=== PATIENT | male | born 1980 | race Hispanic/Latino ===

== ENCOUNTER 2021-10-03 14:33 | Outpatient (CLI) | payer OTHER | END 2021-10-03 14:34 | disposition home or self-care (01) | LOC: CSHMRI 14:33 | PROVIDERS: ATTEND Physician Assistant | DX: R51.9 Headache, unspecified (principal); F17.200 Nicotine dependence, unspecified, uncomplicated; R41.3 Other amnesia; Z86.73 Personal history of transient ischemic attack (TIA), and cerebral infarction without residual deficits | CPT/HCPCS: 70553 ==

== ENCOUNTER 2021-10-03 16:22 | Emergency (ER) | payer OTHER | END 2021-10-03 19:07 | disposition left against medical advice (07) | LOC: CSHERS 16:22 | DX: Z53.21 Procedure and treatment not carried out due to patient leaving prior to being seen by health care provider (principal) ==